=== PATIENT | male | born 1945 | race African-American/Black ===

== ENCOUNTER → 2016-11-06 | Outpatient (CLI) | payer MEDICARE, OTHER ==
--- NOTE | 2016-11-06 16:14 | RADIOLOGY REPORT (SQ) ---
EXAM DESCRIPTION: BARIUM SWALLOW ESOPHAGUS COMPLETED DATE/TIME: 11/06/2016 9:48 am REASON FOR STUDY: GERD, DYSPHAGIA K21.9 GASTRO-ESOPHAGEAL REFLUX DISEASE WITHOUT ESOPHAGITIS R13.10 DYSPHAGIA, UNSPECIFIED COMPARISON: None. TECHNIQUE: Under fluoroscopic guidance, patient ingested thin barium. Fluoroscopic spot images and r outine radiographic images acquired and stored on PACS. 12 MM BARIUM TABLET GIVEN: Yes. The barium tablet paused at the distal esophageal peptic stricture for about 3 minutes before passing into the stomach. This reproduced the patient's symptoms. LIMITATIONS: None. FLUOROSCOPY TIME: 43 seconds 7 series of digital images saved to PACS. FINDINGS: NEUROMUSCULAR COORDINATION OF SWALLOW: Normal. No aspiration. ESOPHAGEAL MOTILITY: Normal peristalsis. No esophageal spasm. ESOPHAGEAL MUCOSA: Normal mucosa without masses or ulceration. GASTRO-ESOPHAGEAL JUNCTION: There is a circumferential distal esophageal stricture just above the GE junction, likely a peptic stricture. This delayed passage of the 12 mm barium tablet for about 3 min utes. Barium tablet in this location reproduced the patient's symptoms. No gross mucosal irregulari ty. There was unprovoked gastroesophageal reflux to the cervical esophagus. NON-GI TRACT STRUCTURES: No significant finding. OTHER: No other significant finding. IMPRESSION: Gastroesophageal reflux to the cervical esophagus Smooth distal esophageal peptic stricture with delayed passage of the barium tablet into the stomach COMMENT: Quality ID [id number]: Final reports for procedures using fluoroscopy that document radiation exp osure indices, or exposure time and number of fluorographic images (if radiation exposure indices are not available) TECHNICAL DOCUMENTATION: JOB ID: [id number] [employer]- All Rights Reserved
== END ==
LOC: RAD 09:18
PROVIDERS: ATTEND Physician Assistant
DX: K21.9 Gastro-esophageal reflux disease without esophagitis (principal); R13.10 Dysphagia, unspecified
CPT/HCPCS: 74220

== ENCOUNTER → 2018-12-16 | Outpatient (CLI) | payer MEDICARE, OTHER ==
--- NOTE | 2018-12-16 09:02 | WOMENS IMAGING REPORT ---
EXAM DESCRIPTION: U/S ABDOMEN LIMITED COMPLETED DATE/TIME: 12/16/2018 8:23 am REASON FOR STUDY: R10.11 RIGHT UPPER QUADRANT PAIN R10.11 RIGHT UPPER QUADRANT PAIN COMPARISON: None. TECHNIQUE: Dynamic and static grayscale images acquired of the abdomen and recorded on PACS. Sandrao evert selected color Doppler and spectral images recorded. LIMITATIONS: None. FINDINGS: PANCREAS: No masses. Visualized pancreatic duct normal caliber. LIVER: The liver measures 13.5 cm in length, normal size. No masses. Echotexture normal. LIVER VASCULATURE: Normal directional flow of the main portal vein and hepatic veins. GALLBLADDER: No stones. The gallbladder wall measures 1.3 mm, normal wall thickness. No pericholecys tic fluid. ULTRASOUND-DETECTED HAMILTON'S SIGN: Negative. INTRAHEPATIC DUCTS AND COMMON DUCT: CBD measures 4.4 mm in diameter, normal. The intrahepatic ducts normal caliber. No filling defects. INFERIOR VENA CAVA: Normal flow. AORTA: No aneurysm. RIGHT KIDNEY: The right kidney measures 10.9 x 5.2 x 5.2 cm, normal size. Normal echogenicity. No so lid or suspicious masses. No hydronephrosis. No calcifications. PERITONEAL AND RIGHT PLEURAL SPACE: No ascites or effusions. OTHER: No other significant findings. IMPRESSION: 1. NORMAL RIGHT UPPER QUADRANT ULTRASOUND. TECHNICAL DOCUMENTATION: JOB ID: [id number] [employer]- All Rights Reserved Reading location - IP/workstation name: [email or web address]
== END ==
LOC: WI 07:36
PROVIDERS: ATTEND Physician Assistant
DX: R10.11 Right upper quadrant pain (principal)
CPT/HCPCS: 76705